=== PATIENT | female | born 1990 | race Hispanic/Latino ===

== ENCOUNTER 2016-06-15 11:37 | Inpatient (IN) ==
[2016-06-15] MEDS ORDERED: NS 1,000 ML IV ONE (11:52)
[2016-06-15 12:00] LABS: MANUAL DIFF NEEDED? NO
[2016-06-15] MEDS ORDERED: ZOFRAN IV ONE (12:01)
[2016-06-15] MEDS ORDERED: MORPHINE IV ONE (12:01)
[2016-06-15 12:02] LABS: URINE CULTURE PL NEEDED? NO; URINE SOURCE CLEAN CATCH
[2016-06-15 12:04] LABS: BASO% 0.1 % (0.0-0.8); HEMATOCRIT 39.3 % (37.0-47.0); HEMOGLOBIN 13.7 g/dL (12.0-16.0); IMM GRAN# 0.04 X1000 (0.0-0.04); IMM GRAN% 0.3 % (0.0-0.5); LYMPH# 1.59 X1000 (1.2-3.4); LYMPH% 10.7 % (20.5-51.1); MCHC 34.9 g/dL (33-37); MONO# 1.25 X1000 (0.11-0.59); MONO% 8.4 % (1.7-9.3); MPV 9.5 FL (7.4-10.4); NEUT% 80.5 % (42.2-75.2); PLT 247 X1000 (130-400); RBC 4.57 XMIL (4.2-5.4)
--- NOTE | 2016-06-15 12:08 | PROVIDER DOCUMENTATION ---
HPI-Abdominal Pain/GI Problem - General Source: patient - History of Present Illness-ABD Nature of Presenting Problems: 25 yo F presents to ED with cc of severe RLQ pain, generalized abdominal pain, and vomiting. Pt reports the abdominal pain began 2 days ago and that she vomited all day yesterday. She reports eating 1 cracker since onset. Pt reports she is able to tolerate fluids. Pt was seen in urgent care, where she had an elevated white count, and sent her for suspected appendicitis. Upon arrival to ED, pt appears moderately distressed and in a large amount of pain. She is able to respond to questions appropriately. Abdominal Pain Onset Location: reports: RLQ (severe), LLQ (moderate) Severity in ED: reports: severe Onset/Duration: reports: abrupt, 2 days ago Timing: reports: still present, constant Activities at Onset: reports: none Exposure to sick contacts?: No Modifying Factors: improves with: nothing Associated Symptoms: reports: nausea, vomiting. denies: constipation, diarrhea Dark Stools Present?: reports: none noticed Rectal Bleeding: reports: none # of Vomiting Episodes: 1 (Pt reports numerous episodes in last 24 hours) <Corrie Link - Last Filed: 06/15/16 14:14> <Lynn France - Last Filed: 06/15/16 14:35> - General Chief Complaint: Abdominal Pain Stated Complaint: ABD PAIN/N/V/FEVER Time Seen by Provider: 06/15/16 11:50 Allergies/Adverse Reactions: Patient Allergies Allergy/AdvReac Type Severity Reaction Status Date / Time No Known Allergies Allergy Verified 06/15/16 11:46 Home Medications: Home Medication List Medication Instructions Recorded Confirmed Last Taken Type No Home Medications 06/15/16 06/15/16 Unknown History Review of Systems - Adult - REVIEW OF SYSTEMS - ADULT Constitutional: reports: fever Eyes: reports: no symptoms reported. denies: discharge, decreased vision Ears, Nose, Mouth & Throat: reports: no symptoms reported. denies: ear pain, nose pain Cardiovascular: reports: no symptoms reported. denies: chest pain, palpitations Respiratory: reports: no symptoms reported. denies: cough, shortness of breath Gastrointestinal: reports: abdominal pain (Severe, worse on R side than L but present all over), nausea, poor appetite, vomiting Genitourinary: reports: no symptoms reported. denies: discharge, flank pain Musculoskeletal: reports: no symptoms reported. denies: bone pain, joint pain Integumentary: reports: no symptoms reported. denies: hives, itching Neurological: reports: no symptoms reported. denies: ataxia, numbness Psychiatric: reports: no symptoms reported. denies: anxiety, depression Endocrine: reports: no symptoms reported. denies: cold intolerance, heat intolerance Hematologic/Lymphatic: reports: no symptoms reported. denies: easy bruising, lymphedema Allergic/Immunologic: reports: no symptoms reported. denies: allergic reactions , eczema All Other Systems: Reviewed and Negative <Corrie Link - Last Filed: 06/15/16 14:14> Past History - Adult - PAST MEDICAL HISTORY-ADULT Review of Records: reports: Old Records Reviewed, Nursing Assessment Review, Medications Reviewed Major Childhood Illnesses: reports: denies history Cardiovascular: reports: denies history Respiratory: reports: denies history Gastrointestinal: reports: denies history Obstetrical/Gynecological: reports: denies history Genitourinary: reports: denies history Musculoskeletal: reports: denies history Neurological: reports: denies history Psychiatric: reports: denies history Endocrine/Immune: reports: denies history - IMMUNIZATION STATUS Childhood Immunizations: See Nurse Assessment Flu Vaccine: See Nurse Assessment <Corrie Link - Last Filed: 06/15/16 14:14> Physical Exam-General - CONSTITUTIONAL General Appearance: alert, moderate distress - EYES Eyes: PERRL/EOMI, pink conjunctivae - HEAD, EARS, NOSE, MOUTH & THROAT HENMT: normocephalic/atraumatic, moist mucous membranes - NECK Neck: non-tender, full range of motion, supple - RESPIRATORY Respiratory: chest non-tender, lungs clear, normal breath sounds - CARDIOVASCULAR Cardiovascular: normal peripheral pulses, regular rate, rhythm - CHEST (BREASTS) Chest/Breast: deferred - GASTROINTESTINAL (ABDOMEN) Abdominal Exam: tenderness (Severe R-side tenderness; moderate L-side tenderness ) - LYMPHATIC Lymphatic: no adenopathy - MUSCULOSKELETAL Back Exam: normal inspection, no vertebral tenderness Extremity: normal range of motion, non-tender - SKIN Integumentary: normal color, normal turgor, warm/dry - NEUROLOGIC Neurologic: grossly normal, no motor/sensory deficits - PSYCHIATRIC Psych/Mental Status: normal mood/affect, normal thought content, normal thought process, oriented x 3 <Corrie Link - Last Filed: 06/15/16 14:14> Progress - CT/MRI 1 CT Study: Abdomen, Pelvis Impression: Abnormal (1. severe inflammation of the cecum and appendix. This includes wall thickening of the cecum and fluid dilation of the appendix. This is compatible with accute appendicitis. There is also a tiny drop of adjacent free air at the mouth of the appendix, concerning for a very early small perforation. 2. Small R ovarian cyst 3. Large uterine fibroid at the R side of fundus.) CT Results: accute appendicitis w/small perforation - CONSULTS/PCP/HOSPITALIST Notification #1 *Consult/PCP/Hospitalist*: Dr. Rodriguez Time Discussed: 14:02 Reason/Comments: Appendectomy Consult Disposition: other (Dr. Rodriguez will followup upon reviewing CT results) <Corrie Link - Last Filed: 06/15/16 14:14> - CONSULTS/PCP/HOSPITALIST Notification Time Discussed: 14:34 Reason/Comments: Admit to Dr. Birch for surgery <Lynn France - Last Filed: 06/15/16 14:35> Departure <Corrie Link - Last Filed: 06/15/16 14:14> - Departure Time of Disposition Order: 14:34 Certified Medical Emergency: Emergent <Lynn France - Last Filed: 06/15/16 14:35> - Departure DIAGNOSIS: Acute appendicitis Qualifiers: Acute appendicitis type: with localized peritonitis Qualified Code(s): K35.3 - Acute appendicitis with localized peritonitis Disposition: ADMITTED INPATIENT 09 Condition: Stable Attestation - Scribe Verification/Attestation Scribe:: Corrie Link Acting as Scribe for:: Lynn France Scribe documention review:: This chart was documented by a scribe and accurately reflects the service the provider performed and the decisions made by the provider. - Physician/ ELLE Attestation Patient care was provided by Advanced Practice Provider:: No <Corrie Link - Last Filed: 06/15/16 14:14> Physician Attestation
[2016-06-15 12:11] LABS: BILIRUBIN URINE NEGATIVE (NEGATIVE); BLOOD URINE 4+ (NEGATIVE); CLARITY SL. CLOUDY (CLEAR); COLOR AMBER; GLUCOSE URINE NEGATIVE (NEGATIVE); LEUKOCYTES URINE 2+ (NEGATIVE); NITRITE URINE NEGATIVE (NEGATIVE); PH URINE 6.5; PROTEIN URINE 1+(30 mg/dL) mg/dL (NEGATIVE); SP GRAVITY URINE 1.015; UROBILINOGEN URINE 1+(1 mg/dL)
[2016-06-15 12:18] LABS: AMYLASE 44 U/L (20-200); LIPASE 21 U/L (13-60)
[2016-06-15 12:22] LABS: AGAP 14; ALBUMIN 4.7 g/dL (3.5-5.0); ALKALINE PHOSPHATASE 96 U/L (32-104); BUN 14 mg/dL (8-22); CALCIUM 9.5 mg/dL (8.8-10.2); CHLORIDE 96 mmol/L (98-107); COSMO 267; GOT 16 U/L (10-30); GPT 27 U/L (10-36); POTASSIUM 3.4 mmol/L (3.5-5.1); SODIUM 132 mmol/L (136-145); TCO2 23 mmol/L (25-35)
[2016-06-15 12:34] LABS: URINE EPITHELIAL CELLS >10 /HPF (<10); URINE RBC 20-40 /HPF (<10)
[2016-06-15] MEDS ORDERED: ZOSYN 3.375 GM/NS 50 ML IV ONE (12:41)
--- NOTE | 2016-06-15 14:13 | Diag Imaging Result Document ---
PROCEDURE NAME: ABDOMEN/PELVIS W/CONTRAST - 06/15/2016 CT ABDOMEN AND PELVIS WITH INTRAVENOUS CONTRAST: COMPARISON: None. FINDINGS: There is rather severe wall thickening of the cecum. The vermiform appendix demonstrates a stone at its mouth, and it is dilated and fluid filled measuring about 1 cm. There is inflammatory stranding about the vermiform appendix and the cecum. There is a small amount of indistinct fluid adjacent to the appendix and some pelvic free fluid as well. There is a tiny drop of possibly perforated air at the mouth of the appendix. There is a right ovarian cyst measuring 2.4 cm. There is also a large mass at the subserosal, right superior uterine fundus measuring about 3.8 cm. This is compatible with a large uterine fibroid. Urinary bladder and rectum are normal. No small bowel obstruction or inflammation. The liver, gallbladder, spleen, pancreas, adrenals, and kidneys are normal. Bony structures are intact. The lung bases are clear. IMPRESSION: 1. Severe inflammation of the cecum and appendix. This includes wall thickening of the cecum and fluid dilation of the appendix. This is compatible with acute appendicitis. There is also a tiny drop of adjacent free air at the mouth of the appendix concerning for a very early small perforation. 2. Small right ovarian cyst. 3. Large uterine fibroid at the right side of the fundus.
[2016-06-15] MEDS ORDERED: LR 1,000 ML ONE ×3 (15:06→17:01)
[2016-06-15] MEDS ORDERED: MARCAINE 0.25% PF/EPI 1:200,000 ONE (15:06)
[2016-06-15] MEDS ORDERED: DIPRIVAN 1% ONE (17:01)
[2016-06-15] MEDS ORDERED: FENTANYL ONE (17:01)
--- NOTE | 2016-06-15 17:27 | HISTORY AND PHYSICAL ---
CHIEF COMPLAINT: Abdominal pain. HISTORY OF PRESENT ILLNESS: A 25-year-old female with a two-day history of lower abdominal pain, right greater than left, worsened with coughing and movement, lessened some with Lortab, with associated nausea, vomiting, and fever. PAST MEDICAL HISTORY: None. PAST SURGICAL HISTORY: None. ALLERGIES: No known drug allergies. HOME MEDICATIONS: None. FAMILY HISTORY: Reviewed and noncontributory. SOCIAL HISTORY: She smokes some, but denies alcohol or illicit drug use. REVIEW OF SYSTEMS: Ten systems reviewed and negative except as noted above. PHYSICAL EXAMINATION: VITAL SIGNS: Temperature 100.3 degrees on presentation 99.5 now. Pulse 97-111, respiratory rate 18-19, blood pressure 116/75. GENERAL: Well-developed well-nourished female who looks her stated age and appears ill. HEENT: Normocephalic, atraumatic. Extraocular muscles intact. Pupils equal, round, reactive to light. Sclerae anicteric. NECK: Supple. No thyromegaly. CARDIOVASCULAR: Regular rate and rhythm. RESPIRATORY: Bilateral equal breath sounds. GI: Soft, nondistended. She is quite tender in the lower abdomen, right greater than left. She does have a rebound tenderness. EXTREMITIES: No clubbing, cyanosis, or edema. SKIN: Warm and dry. No rash. LABORATORY: White blood cell count 14.9, hemoglobin 13.7, sodium 132. Potassium 3.4, chloride 96, CO2 23, BUN 14, creatinine 0.6, glucose 135, total bilirubin 1.9. Liver function tests normal. Amylase and lipase normal. Urinalysis is probably contaminated. Urine test negative. IMAGING: CT of abdomen and pelvis was reviewed by me and it does show an obviously inflamed appendix with surrounding inflammation and evidence of free fluid and some droplets of free air consistent with perforation. ASSESSMENT AND PLAN: A 25-year-old female with perforated appendicitis. I am planning laparoscopic appendectomy with washout of the perforated area. We discussed the risks, benefits, and alternatives, including bleeding, infection, injury to surrounding organs, such as the intestines, incisional hernia, and other imponderables. She understands and agrees to proceed.
[2016-06-15] MEDS ORDERED: ZOFRAN IV PRN (17:36)
--- NOTE | 2016-06-15 17:58 | OPERATIVE NOTE ---
PROCEDURE DATE: 06/15/2016 PREOPERATIVE DIAGNOSIS: Perforated appendicitis. POSTOPERATIVE DIAGNOSIS: Perforated appendicitis. PROCEDURE: Laparoscopic appendectomy and drainage of intra-abdominal abscess. SURGEON: Emile Rodriguez MD. ANESTHESIA: General. ESTIMATED BLOOD LOSS: 10 mL. COMPLICATIONS: None apparent. SPECIMENS: Appendix. FINDINGS: The appendix was obviously inflamed with proximal perforation. There was purulent fluid in the pelvis and the right and left lower quadrants and right pericolic gutter. TECHNIQUE: She was brought to the operating room and placed supine on the table. General anesthesia was induced. She was prepped and draped in the usual sterile fashion after a Samaniego catheter was placed. Marcaine 0.25% with epinephrine was used to anesthetize our skin incisions. A 12 mm incision was made above the umbilicus. The fascia was exposed and incised sharply. Entry into the peritoneal cavity was obtained under direct vision with the Optiview device. Pneumoperitoneum was established. The camera was inserted. There was no evidence of injury to underlying structures. Two 5 mm incision and ports were placed, 1 in the left lower quadrant and 1 in the lower suprapubic midline position. She was then placed in Trendelenburg and left rotation. The omentum was reflected out of the pelvis. I followed the terminal ileum up into the cecum finding purulent fluid in the lower abdomen and right lower quadrant and pericolic gutter. Rolling the cecum up medially and anteriorly I did find a retrocecal appendix. It was obviously inflamed. There was some oozing proximally from the lumen. I was able to bluntly push this off of the retroperitoneum and lift it up. The appendiceal mesentery was then divided with the LigaSure device. The base of the appendix with a cuff of cecum was transected with the Endo-ADÁN stapler. It was placed in an EndoCatch bag. I then thoroughly irrigated out the lower abdomen around the uterus, in the cul-de-sac, and the pericolic gutters, and suctioned this out. We then placed a 19 Colten drain along the pelvis and right lower quadrant. It was brought out through the left lower quadrant port site. It was anchored to the skin with nylon suture. I then brought the appendix and bag out through the umbilical port site. The umbilical fascia was closed with a 0 Vicryl using the Cal-Kyung device. The abdomen was desufflated. The skin was closed with running 4-0 subcuticular Monocryl and Steri-Strips. There were no apparent complications.
[2016-06-15] MEDS: LR 1,000 ML IV SCH (18:35)
[2016-06-15] MEDS: ZOSYN 3.375 GM/NS 50 ML IV SCH ×2 (18:35→23:42)
[2016-06-15] MEDS ORDERED: TYLENOL PO PRN (18:56)
[2016-06-15] MEDS: NORCO-10 PO PRN ×2 (19:24→23:42)
[2016-06-15] MEDS: PERIDEX MT SCH (22:02)
[2016-06-16] MEDS: NORCO-10 PO PRN ×4 (03:52→23:30)
[2016-06-16] MEDS: ZOSYN 3.375 GM/NS 50 ML IV SCH ×4 (05:40→23:30)
[2016-06-16 05:42] LABS: MANUAL DIFF NEEDED? NO
[2016-06-16 06:07] LABS: AGAP 11; BUN 8 mg/dL (8-22); CALCIUM 8.2 mg/dL (8.8-10.2); CHLORIDE 100 mmol/L (98-107); COSMO 271; POTASSIUM 3.5 mmol/L (3.5-5.1); SODIUM 136 mmol/L (136-145); TCO2 25 mmol/L (25-35)
[2016-06-16 06:46] LABS: BASO% 0.1 % (0.0-0.8); EOS# 0.01 X1000 (0.0-0.7); EOS% 0.1 % (0.0-10.0); HEMATOCRIT 32.9 % (37.0-47.0); HEMOGLOBIN 11.2 g/dL (12.0-16.0); LYMPH% 12.4 % (20.5-51.1); MCH 30.2 PG (27-31); MCV 88.7 FL (81-99); MONO# 0.72 X1000 (0.11-0.59); MONO% 8.9 % (1.7-9.3); MPV 9.9 FL (7.4-10.4); NEUT% 78.5 % (42.2-75.2); PLT 178 X1000 (130-400); RBC 3.71 XMIL (4.2-5.4)
[2016-06-16] MEDS: DILAUDID IV PRN (08:09)
[2016-06-16] MEDS: LR 1,000 ML IV SCH ×2 (08:22→17:53)
[2016-06-16] MEDS ORDERED: NEOSTIGMINE ONE (09:44)
[2016-06-16] MEDS ORDERED: ZOFRAN ONE (09:44)
[2016-06-16] MEDS ORDERED: ROBINUL ONE (09:44)
[2016-06-16] MEDS ORDERED: DECADRON ONE (09:44)
[2016-06-16] MEDS ORDERED: LR 1,000 ML ONE (09:44)
[2016-06-16] MEDS ORDERED: XYLOCAINE-MPF 2% ONE (09:44)
[2016-06-16] MEDS ORDERED: STERILE WATER INJ. ONE (09:44)
[2016-06-16] MEDS ORDERED: NORCURON ONE (09:44)
[2016-06-16] MEDS ORDERED: QUELICIN (DOSE) ONE (09:44)
--- NOTE | 2016-06-16 11:06 | PROGRESS NOTE ---
DATE: 06/16/2016 SUBJECTIVE: The patient says she is hurting, but it is different than she had before surgery, and overall she does feel a little better. She has some mild nausea. She is sipping on some liquids and is tolerating that. OBJECTIVE: Vital Signs: Yesterday evening she had a fever of 102.1, but this morning the temperature is 98.4. Vital signs are stable. General: She is alert and oriented x4. No acute distress. CV: Regular rate and rhythm. Respiratory: Bilateral equal breath sounds. No work of breathing. GI: Soft, nondistended. Appropriately tender. Incisions are clean, dry, and intact. Her NANCY drain has zero purulent drainage. LABORATORY: White blood cell count 8, hemoglobin 11.2. Basic metabolic profile reviewed and unremarkable. ASSESSMENT AND PLAN: A 25-year-old female status post laparoscopic appendectomy and washout of intra-abdominal abscess for perforated appendicitis. She will need to stay in the hospital a few more days on intravenous antibiotics. We will slowly advance her diet over the weekend. I have encouraged her to ambulate.
[2016-06-16] MEDS: PERIDEX MT SCH ×2 (11:55→20:30)
[2016-06-17] MEDS: ZOSYN 3.375 GM/NS 50 ML IV SCH ×3 (05:38→17:53)
[2016-06-17] MEDS: NORCO-10 PO PRN ×4 (05:41→21:45)
[2016-06-17] MEDS: LR 1,000 ML IV SCH ×2 (05:42→09:43)
[2016-06-17] MEDS: PERIDEX MT SCH ×2 (09:00→21:46)
--- NOTE | 2016-06-17 09:54 | PROGRESS NOTE ---
DATE: 06/17/2016 SUBJECTIVE: Ms. Portillo is a 25-year-old female, who is now postop day 2 status post laparoscopic appendectomy for a perforated appendix by Dr. Rodriguez on 06/15/2016. A drain was left at the time of surgery. She is awake, cooperative. She feels some cramping and bloating. She has not had flatus recently, but she is tolerating liquids. The output from her drain is clearing up and becoming more serous. OBJECTIVE: Vital Signs: Her heart rate is 103, blood pressure 110/74, O2 saturation 93%. She has no work of breathing. She is voiding without difficulty. She is afebrile on IV Zosyn. Abdomen: Her incisions are healing well. LABS: Her white blood cell count has gone from 15 to 8 over the last 24 hours. Her hematocrit is 33%. All her electrolytes are within normal limits. PLAN: We will continue to increase her activity. I will leave her NANCY drain in today. Continue IV antibiotics to fight intra-abdominal infection, and be sure that she has good bowel activity prior to any discharge.
[2016-06-18] MEDS: ZOSYN 3.375 GM/NS 50 ML IV SCH ×4 (00:18→17:02)
[2016-06-18] MEDS: LR 1,000 ML IV SCH ×2 (00:20→17:05)
[2016-06-18] MEDS: PERIDEX MT SCH ×2 (08:51→21:30)
[2016-06-18] MEDS: NORCO-10 PO PRN (08:55)
--- NOTE | 2016-06-18 11:56 | PROGRESS NOTE ---
DATE: 06/18/2016 Ms. Keesha Portillo is a 25-year-old female who is status post laparoscopic appendectomy per Dr. Rodriguez for ruptured appendix. She has a drain in place and there is serosanguineous drainage in that drain. She feels better than she did yesterday with less abdominal cramping. She is having flatus. She still on clear liquids and will advance her diet to a regular diet. Her heart rate is 85, blood pressure 97/59, O2 saturation 98%. She is voiding without difficulty. Her urine output is adequate. She is afebrile on IV Zosyn. All of her trocar sites are healing well. Her abdomen is mostly soft.
[2016-06-18] MEDS: DILAUDID IV PRN (21:55)
[2016-06-19] MEDS: ZOSYN 3.375 GM/NS 50 ML IV SCH ×2 (00:38→05:40)
[2016-06-19] MEDS: LR 1,000 ML IV SCH (02:08)
[2016-06-19] MEDS: DILAUDID IV PRN (04:28)
[2016-06-19 08:16] VITALS: BP 110/62
--- NOTE | 2016-06-20 07:20 | DISCHARGE SUMMARY ---
ADMISSION DATE: 06/15/2016 DISCHARGE DATE: 06/19/2016 ADMITTING DIAGNOSIS: Perforated appendicitis. POSTOPERATIVE DIAGNOSIS: Perforated appendicitis with intra-abdominal abscess. ADMITTING PHYSICIAN: Dr. Emile Rodriguez. PROCEDURE: Laparoscopic appendectomy with drainage of intra-abdominal abscess. HOSPITAL COURSE: The patient was admitted with a history, physical, labs and imaging diagnostic of perforated appendicitis. She was taken to the operating room on the day of admission and underwent the above procedures. Please see the dictated operative report for further details. Postoperatively, she did quite well. She was kept on IV antibiotics and had a drain. Her drain output changed from purulent material to serosanguineous material by the time she was discharged. Her vital signs were initially showing fever on the first 24 hours, but she convalesced quite nicely after the first 24 hours with stable vital signs and no more fever. She was able to gradually get up and walk more each day. She had her Samaniego catheter removed and was able to void. She was passing gas and began tolerating a soft diet. Her white blood cell count did change from 14.9 to 8.0 within the first 24 hours of admission. On the day of discharge, I removed her drain and gave her discharge instructions which are to shower and keep her open wound where the drain was covered with a Band-Aid until it closes. She should avoid heavy lifting or strenuous work or exercise for the next month. She can eat a regular diet as tolerated. She should follow up with me in 10-14 days. DISCHARGE MEDICATIONS: 1. Ciprofloxacin 500 mg b.i.d. x7 days. 2. Flagyl 500 mg t.i.d. x7 days. 3. She also has a prescription for Kelso 10 mg 1 p.o. q.6 hours as needed for pain.
== END 2016-06-19 10:36 | disposition home or self-care (01) | DRG 340 ==
LOC: P.ED 11:37 → P.OR 11:38 → 4N 17:06
PROVIDERS: ADMIT Surgery; ATTEND Surgery
PROC: 0DTJ4ZZ Resection of Appendix, Percutaneous Endoscopic Approach (ICD-10-PCS; principal; 2016-06-15 15:47)
DX: K35.2 Acute appendicitis with generalized peritonitis (principal); F17.210 Nicotine dependence, cigarettes, uncomplicated
CPT/HCPCS: 74177; 80048; 80053; 81001; 82150; 83690; 85025; 88304; 94761; 94799; 96361; 96365; 96375; J0330; J1100; J1170; J2270; J2405; J2543; J3010; J7030; J7120; Q9967; J2710